=== PATIENT | male | born 1960 | race Caucasian/White ===

== ENCOUNTER 2024-03-17 10:17 | Day surgery (SDC) | payer OTHER ==
[~2024-03-17] VITALS: Ht 193 cm; Wt 112.7 kg
[~2024-03-17 10:17] MED LIST: CYCLOPENTOLATE HCL 1% 2 ML OPHTHALMIC SOLUTION ONE; FLURBIPROFEN SODIUM 0.03% 2.5 ML OPHTHALMIC SOLUTION ONE; LIDOCAINE/PF 1% 2 ML VIAL ONE; MOXIFLOXACIN HCL 0.5% 3 ML OPHTHALMIC SOLUTION ONE; NEOMYCIN/POLYMYXIN B/DEXAMETH 3.5 GM OPHTHALMIC OINTMENT ONE; PHENYLEPHRINE HCL 2.5% 2 ML OPHTHALMIC SOLUTION ONE; PrednisoLONE ACETATE 1% 5 ML OPHTHALMIC SUSPENSION ONE; RINGERS SOLUTION,LACTATED 0 ML IV ONE; TETRACAINE HCL/PF 0.5% 4 ML OPHTHALMIC SOLUTION ONE; TROPICAMIDE 1% 2 ML OPHTHALMIC SOLUTION ONE
[2024-03-17] MEDS: TROPICAMIDE 1% 2 ML OPHTHALMIC SOLUTION OD SCH (10:59)
[2024-03-17] MEDS: CYCLOPENTOLATE HCL 1% 2 ML OPHTHALMIC SOLUTION OD SCH (10:59)
[2024-03-17] MEDS: FLURBIPROFEN SODIUM 0.03% 2.5 ML OPHTHALMIC SOLUTION OD SCH (11:00)
[2024-03-17] MEDS: TETRACAINE HCL/PF 0.5% 4 ML OPHTHALMIC SOLUTION OD SCH (11:00)
[2024-03-17] MEDS: PHENYLEPHRINE HCL 2.5% 2 ML OPHTHALMIC SOLUTION OD SCH (11:00)
[2024-03-17] MEDS: MOXIFLOXACIN HCL 0.5% 3 ML OPHTHALMIC SOLUTION OD SCH (11:01)
[2024-03-17 11:06] LABS: GLUCOMETER DEV NAME(LOC) SDS.; GLUCOSE,POINT OF CARE 163 MG/DL (70-110)
[2024-03-17] MEDS ORDERED: RINGERS SOLUTION,LACTATED 500 ML IV ONE (11:43)
[2024-03-17] MEDS: RINGERS SOLUTION,LACTATED 500 ML IV ONE (11:44)
[2024-03-17] MEDS ORDERED: SODIUM CHLORIDE 0.9% 500 ML IV ONE (11:45)
[2024-03-17] MEDS ORDERED: FentaNYL CITRATE PF 100 MCG/2 ML VIAL IVP ONE (12:00)
[2024-03-17] MEDS ORDERED: BALANCED SALT 15 ML OPHTHALMIC IRRIG.SOLN OD ONE (12:00)
[2024-03-17] MEDS ORDERED: PrednisoLONE ACETATE 1% 5 ML OPHTHALMIC SUSPENSION OD ONE (12:00)
[2024-03-17] MEDS ORDERED: MIDAZOLAM HCL 2 MG/2 ML VIAL IVP ONE (12:00)
[2024-03-17] MEDS ORDERED: EPINEPHrine 1:1,000 [1 MG/ML] VIAL SQ ONE (12:00)
[2024-03-17] MEDS ORDERED: ACETAMINOPHEN 325 MG TABLET PO PRN (12:00)
[2024-03-17] MEDS ORDERED: LIDOCAINE/PF 2% 5 ML VIAL IM ONE (12:00)
[2024-03-17] MEDS ORDERED: POVIDONE-IODINE 5% 30 ML OPHTHALMIC SOLUTION OD ONE (12:00)
[2024-03-17] MEDS ORDERED: HYALURONATE SOD 8.5MG/0.85ML 10 MG/ML SYRINGE IO ONE (12:00)
[2024-03-17] MEDS ORDERED: RANO500T27 PO (12:19)
[2024-03-17] MEDS ORDERED: METF-1211 PO (12:19)
[2024-03-17] MEDS ORDERED: ALIR150P6 SQ (12:19)
[2024-03-17] MEDS ORDERED: PRAV40TA4 PO (12:19)
[2024-03-17] MEDS ORDERED: EMPA10TA3 PO (12:19)
[2024-03-17] MEDS ORDERED: PANT-31 PO (12:19)
[2024-03-17] MEDS ORDERED: METO100T14 PO (12:19)
[2024-03-17] MEDS ORDERED: ASPI-1450 PO (12:19)
[2024-03-17] MEDS ORDERED: ACETYLCHOLINE CHLORIDE 1 EA INTRAOCULAR SOLUTION KIT IO ONE (12:26)
[2024-03-17] MEDS ORDERED: ATROPINE SULFATE 0.1 MG/ML 10 ML SYRINGE IVP ONE (12:49)
[2024-03-17] MEDS: BALANCED SALT 15 ML OPHTHALMIC IRRIG.SOLN ONE (13:15)
[2024-03-17] MEDS: POVIDONE-IODINE 5% 30 ML OPHTHALMIC SOLUTION ONE (13:15)
[2024-03-17] MEDS: EPINEPHrine 1:1,000 [1 MG/ML] VIAL ONE (13:15)
[2024-03-17] MEDS ORDERED: RINGERS SOLUTION,LACTATED 1,000 ML IV ONE (13:16)
[2024-03-17] MEDS ORDERED: FentaNYL CITRATE PF 100 MCG/2 ML VIAL IVP PRN (13:30)
[2024-03-17] MEDS ORDERED: HYDROmorphone HCL 2 MG/ML SYRINGE IVP PRN (13:30)
[2024-03-17] MEDS ORDERED: MEPERIDINE-PF 25 MG/ML VIAL IVP PRN (13:30)
[2024-03-17] MEDS ORDERED: OXYGEN THERAPY IH SCH (20:00)
== END 2024-03-17 14:25 | disposition home or self-care (01) ==
LOC: SURGERY 10:17
PROVIDERS: ATTEND Ophthalmology
DX: E11.36 Type 2 diabetes mellitus with diabetic cataract (principal); H25.11 Age-related nuclear cataract, right eye; I10 Essential (primary) hypertension; R94.31 Abnormal electrocardiogram [ECG] [EKG]; I45.2 Bifascicular block; K76.0 Fatty (change of) liver, not elsewhere classified; G47.30 Sleep apnea, unspecified; F17.210 Nicotine dependence, cigarettes, uncomplicated; Z79.899 Other long term (current) drug therapy; Z95.0 Presence of cardiac pacemaker; Z90.49 Acquired absence of other specified parts of digestive tract; Z98.890 Other specified postprocedural states
CPT/HCPCS: 66984; 82962; 93005; J0171; J3010; J3490; J2250; J7120 ×2; V2632; J0461